=== PATIENT | male | born 1980 | race African-American/Black ===

== ENCOUNTER 2025-01-21 20:04 | Emergency (ER) | payer SELFPAY ==
[~2025-01-21] VITALS: Ht 175.3 cm; Wt 78.0 kg
[2025-01-21 20:11] VITALS: O2SAT 100
[2025-01-21] MEDS: ACETAMINOPHEN 500MG TABLET PO ONE (22:09)
[2025-01-21] MEDS: DIPHENHYDRAMINE 25MG CAPSULE PO ONE (22:09)
[2025-01-21] MEDS: METOCLOPRAMIDE HCL 10MG TABLET PO ONE (22:09)
[2025-01-22] MEDS: FLUORESCEIN SODIUM 1MG/STRIP LEFTEYE ONE (00:13)
[2025-01-22] MEDS: TETRACAINE 0.5% OPHTH DROPS 4ML BOTHEYE ONE (00:13)
[2025-01-22] MEDS: KETOROLAC 15MG/ML VIAL IM ONE (00:13)
[2025-01-22 00:17] VITALS: BP 121/69; PULSE 82; RESP 16; TEMP 36.9; O2SAT 100
[2025-01-22] MEDS ORDERED: DICL100T96 MT (00:27)
[2025-01-22] MEDS ORDERED: OFLO5DRO LEFTEYE (00:28)
== END 2025-01-22 00:58 | disposition home or self-care (01) ==
LOC: ER 20:04
DX: S02.2XXA Fracture of nasal bones, initial encounter for closed fracture (principal); S02.85XA Fracture of orbit, unspecified, initial encounter for closed fracture; S05.02XA Injury of conjunctiva and corneal abrasion without foreign body, left eye, initial encounter; Y04.0XXA Assault by unarmed brawl or fight, initial encounter; Y93.89 Activity, other specified; Y92.89 Other specified places as the place of occurrence of the external cause; Y99.8 Other external cause status
CPT/HCPCS: 99285; 70450; 70486; 96372; Q0163; J8597; J1885